=== PATIENT | male | born 1950 | race Hispanic/Latino ===

== ENCOUNTER → 2018-07-30 | Outpatient (CLI) | payer OTHER, MEDICARE ==
[~2018-07-30] MED LIST: ASPI-1181 PO; ATOR10TA69 PO; IBUP-2077 PO; INVOK100TB PO; LISI10TA7 PO; METF-444 PO
== END | disposition home or self-care (01) ==
LOC: SHCH 09:33
PROVIDERS: ATTEND Internal Medicine Cardiovascular Disease
DX: I87.2 Venous insufficiency (chronic) (peripheral) (principal)
CPT/HCPCS: 93970

== ENCOUNTER → 2023-04-18 | Outpatient (CLI) | payer OTHER, MEDICARE ==
[~2023-04-18] MED LIST changes: -ASPI-1181 PO; +ASPI-1443 PO; +LISI10TA24 PO; -LISI10TA7 PO
[2023-04-18 12:23] LABS: ALBUMIN 4.4 g/dL (3.5-5.0); BILIRUBIN,TOTAL 0.6 mg/dL (0.2-1.0); CREATININE 1.1 mg/dL (0.5-1.5); POTASSIUM 4.6 mmol/L (3.5-5.1); TOTAL PROTEIN, SERUM 7.6 g/dL (6.0-8.3)
== END | disposition home or self-care (01) ==
LOC: LAB 09:17
PROVIDERS: ATTEND Internal Medicine Cardiovascular Disease
DX: I10 Essential (primary) hypertension (principal); I25.10 Atherosclerotic heart disease of native coronary artery without angina pectoris; E11.59 Type 2 diabetes mellitus with other circulatory complications; E78.00 Pure hypercholesterolemia, unspecified
CPT/HCPCS: 36415; 80053; 80061; 82043

== ENCOUNTER → 2025-03-02 | Outpatient (CLI) | payer OTHER, MEDICAID ==
[~2025-03-02] MED LIST changes: +IOHEXOL-350 75 ML VIAL IV ONE
--- NOTE | 2025-03-03 10:00 | HMCIMG ---
EXAM: CT Chest with and without Intravenous Contrast. CLINICAL HISTORY: CHRONIC COUGH TECHNIQUE: Axial computed tomography images of the chest with and without intravenous contrast. CONTRAST: Intravenous contrast was administered. COMPARISON: None provided. FINDINGS: LUNGS: The lungs are clear. No pulmonary mass. PLEURAL SPACES: No pneumothorax evident. No pleural effusions. HEART: No cardiomegaly. No significant pericardial effusion. Atherosclerotic changes in the aorta and coronary arteries. LYMPH NODES: No lymphadenopathy is evident. BONES: No focal osseous abnormality or acute fracture. Moderate degenerative changes in the spine. UPPER ABDOMEN: A simple cortical cyst measuring 2.1 x 2.1 cm in the mid pole of the left kidney. IMPRESSION: 1. No acute intrathoracic findings. 2. Atherosclerosis and coronary artery disease. /Adams
== END | disposition home or self-care (01) ==
LOC: RAH 08:02
PROVIDERS: ATTEND Family Medicine
DX: R06.02 Shortness of breath (principal); R05.3 Chronic cough; I25.10 Atherosclerotic heart disease of native coronary artery without angina pectoris; I70.0 Atherosclerosis of aorta; M47.814 Spondylosis without myelopathy or radiculopathy, thoracic region; N28.1 Cyst of kidney, acquired; Z87.891 Personal history of nicotine dependence
CPT/HCPCS: 71270; Q9967